=== PATIENT | male | born 1990 | race Caucasian/White ===

== ENCOUNTER → 2020-09-16 | Outpatient (CLI) | payer OTHER ==
--- NOTE | 2020-09-16 12:22 | REP ---
INDICATION: RT HIP PAIN. Right hip pain. History of a slip and fall approximately 1 month ago. COMPARISON: No comparison imaging.. TECHNIQUE: T1 and fat-sat T2 coronal images of both hips are acquired. T2 fat sat smaller [id number] high-resolution images are obtained of the right hip in all 3 planes. FINDINGS: Cortical and medullary bone signal intensity are normal in the proximal femurs bilaterally. There is no evidence of avascular necrosis. Cortical and medullary bone signal intensity are normal in the visualized bony pelvic ring. There is no evidence of adenopathy or mass in the pelvis. No abdominal wall defect is seen. No evidence of hip joint effusion is seen on either side. There is a pattern of mild edema along the course of the ligamentum teres on the right and in the medial wall of the acetabulum on the right consistent with contusion. There is no evidence of overt fracture. Head neck junction morphology is normal. There is no MR evidence of acetabular labral cartilage disruption. IMPRESSION: Mild contusion pattern in the medial aspect of the acetabulum on the right and along the course of the right ligamentum teres. Otherwise negative MRI study right hip. <Electronically signed by Mo Smith > 09/16/20 [id number]
== END ==
LOC: M PLARAD 10:14
PROVIDERS: ATTEND Family Medicine
DX: M25.551 Pain in right hip (principal)

== ENCOUNTER 2020-11-21 12:26 | Outpatient (RCR) | payer OTHER | END 2020-12-01 | LOC: M PT 12:26 | PROVIDERS: ATTEND Orthopaedic Surgery Sports Medicine | DX: M25.551 Pain in right hip (principal) ==

== ENCOUNTER → 2020-12-31 | Outpatient (RCR) | payer OTHER | LOC: M PT 12-05 07:41 | PROVIDERS: ATTEND Orthopaedic Surgery Sports Medicine | DX: M25.551 Pain in right hip (principal) ==

== ENCOUNTER 2021-01-09 14:30 | Outpatient (RCR) | payer OTHER | END 2021-01-31 | LOC: M PT 14:30 | PROVIDERS: ATTEND Orthopaedic Surgery Sports Medicine | DX: M25.551 Pain in right hip (principal) ==

== ENCOUNTER → 2021-10-14 | Outpatient (CLI) | payer OTHER | LOC: M ADAMS 13:55 | PROVIDERS: ATTEND Family Medicine | DX: M54.6 Pain in thoracic spine (principal) ==

== ENCOUNTER → 2024-04-23 | Outpatient (REF) | payer OTHER ==
[2024-04-23 12:57] LABS: ALBUMIN 3.9 G/DL (3.2-5.2); ALKALINE PHOSPHATASE 83 U/L (46-116); ALT/SGPT 48 U/L (7.0-40); AST/SGOT 24 U/L (<34); BILIRUBIN,TOTAL 0.5 MG/DL (0.3-1.2); BLOOD UREA NITROGEN 11 MG/DL (9-23); CALCIUM LEVEL 9.6 MG/DL (8.5-10.1); CARBON DIOXIDE LEVEL 28 MMOL/L (20-31); CHLORIDE LEVEL 109 MMOL/L (98-107); CREATININE FOR GFR 1.09 MG/DL (0.70-1.30); GLOMERULAR FILTRATION RATE > 60.0 (>60); GLUCOSE, FASTING 95 MG/DL (60-100); POTASSIUM SERUM 4.2 MMOL/L (3.5-5.1); SODIUM LEVEL 142 MMOL/L (136-145); TOTAL PROTEIN 6.8 G/DL (5.7-8.2)
[2024-04-23 12:58] LABS: FREE T4 1.48 NG/DL (0.89-1.76)
[2024-04-23 12:59] LABS: TESTOSTERONE 431 NG/DL (241-827)
[2024-04-23 13:00] LABS: BASO # 0.1 10^3/uL (0.0-0.2); BASO % 0.6 % (0.0-1.0); EOS # 0.2 10^3/uL (0.0-0.5); EOS % 2.3 % (0.0-3.0); HEMATOCRIT 47.3 % (42.0-52.0); LYMPH # 2.8 10^3/uL (1.5-5.0); LYMPH % 31.5 % (24.0-44.0); MEAN CORPUSCULAR HEMOGLOBIN 29.5 pg (27.0-33.0); MEAN CORPUSCULAR HGB CONC 33.8 g/dl (32.0-36.5); MEAN CORPUSCULAR VOLUME 87.1 fl (80.0-96.0); MONO # 0.5 10^3/uL (0.0-0.8); MONO % 5.8 % (2.0-8.0); NEUTROPHILS # 5.4 10^3/uL (1.5-8.5); NEUTROPHILS % 59.5 % (36.0-66.0); PLATELET COUNT, AUTOMATED 199 10^3/uL (150-450); RED BLOOD COUNT 5.43 10^6/uL (4.30-6.10)
== END ==
LOC: M SFHCADAM 08:46
PROVIDERS: ATTEND Physician Assistant
DX: R45.4 Irritability and anger (principal)